=== PATIENT | male | born 1960 | race Caucasian/White ===

== ENCOUNTER 2017-06-25 17:45 | Emergency (ER) | payer BC, OTHER ==
[~2017-06-25] VITALS: Ht 170.2 cm; Wt 112.0 kg
[~2017-06-25 17:45] MED LIST: ALEVE220 MG PO; CARAFATE 11 GM/10 M1 PO; HYDROCODON-ACE1 EA11 PO; HYOSCYAMINE0.125 M1 SUBLING; NORCO 5-325 TA1 EACH PO; NORCO 7.5-3251 EACH PO; ONDANSETRON ODT8 MG PO; PANTOPRAZOLE SO40 M1 PO; PERCOCET 5-3251 EACH PO; PRAVACHOL40 MG PO; PRINIVIL5 MG PO; PROAIR HFA8.5 GM INH; ZOFRAN ODT4 MG PO
[2017-06-25 17:57] LABS: URINE BILIRUBIN NEGATIVE (Negative); URINE BLOOD 2+ (Negative); URINE COLOR YELLOW; URINE GLUCOSE-RANDOM* NEGATIVE (Negative); URINE KETONES NEGATIVE (Negative); URINE LEUKOCYTES-REFLEX NEGATIVE (Negative); URINE PROTEIN (DIPSTICK) NEGATIVE (Negative); URINE SPECIFIC GRAVITY 1.025 (1.003-1.035); URINE UROBILINOGEN 0.2 E.U./dl (0.2-1.0)
[2017-06-25 18:21] LABS: SQUAMOUS None Seen /LPF (0-3); URINE RBC 0-2 Rare /HPF (0-2); URINE WBC-REFLEX None Seen /HPF (0-5)
[2017-06-25 18:22] LABS: CASTS None Seen /LPF (None Seen); CRYSTALS None Seen /LPF (None Seen)
[2017-06-25 18:53] LABS: HEMATOCRIT 44.1 % (42.0-52.0); HEMOGLOBIN 14.8 gm/dL (14.0-18.0); MCH 29.8 pg (26.0-34.0); MCHC 33.6 g/dL (28.0-37.0); MCV 88.7 fL (80.0-100.0); RBC 4.97 mil/uL (4.50-6.00); RDW 14.1 % (10.5-14.5); WBC 7.1 thou/uL (4.0-11.0)
[2017-06-25 19:11] LABS: CALCIUM 9.1 mg/dL (8.5-10.1); POTASSIUM 4.2 mmol/L (3.5-5.1)
[2017-06-25 19:16] LABS: ALBUMIN 4.3 g/dL (3.4-5.0); TOTAL BILIRUBIN 0.3 mg/dL (<0.1-1.0); TOTAL PROTEIN 7.3 g/dL (6.4-8.2)
[2017-06-25] MEDS ORDERED: FLOMAX0.4 MG PO (20:22)
[2017-06-25] MEDS ORDERED: OXYCODONE HCL 55 MG PO (20:22)
[2017-06-25] MEDS ORDERED: ZOFRAN ODT4 MG PO (20:22)
== END 2017-06-25 20:56 | disposition home or self-care (01) ==
LOC: ER 17:45
PROVIDERS: Emergency Medicine
DX: N20.1 Calculus of ureter (principal); I10 Essential (primary) hypertension; E78.00 Pure hypercholesterolemia, unspecified; J45.909 Unspecified asthma, uncomplicated; F10.99 Alcohol use, unspecified with unspecified alcohol-induced disorder; Z88.1 Allergy status to other antibiotic agents